=== PATIENT | female | born 1995 | race American Indian/Alaskan Native ===

== ENCOUNTER 2017-05-11 19:53 | Emergency (ER) | payer OTHER | END 2017-05-11 21:45 | disposition left against medical advice (07) | LOC: ED 19:53 | DX: M54.9 Dorsalgia, unspecified (principal); Z53.21 Procedure and treatment not carried out due to patient leaving prior to being seen by health care provider ==

== ENCOUNTER 2018-03-13 04:16 | Emergency (ER) | payer OTHER ==
[2018-03-13] MEDS ORDERED: MOTRIN PO ONE (04:44)
[2018-03-13] MEDS ORDERED: CATAPRES ONE (04:57)
[2018-03-13] MEDS ORDERED: CATAPRES PO ONE (04:58)
[2018-03-13 05:36] LABS: Basophils # (Auto) 0.1 K/mm3 (0.0-0.1); Basophils % (Auto) 1.2 % (0.0-1.8); Eosinophils # (Auto) 0.1 K/mm3 (0.0-0.4); Hematocrit 39.5 % (30.3-42.9); Lymphocytes % (Auto) 27.9 % (13.4-35.0); Mean Corpuscular HGB Conc 33 % (30-34); Mean Corpuscular Hemoglobin 29 pg (28-32); Mean Corpuscular Volume 88 fl (79-97); Monocytes # (Auto) 0.6 K/mm3 (0.0-0.8); Monocytes % (Auto) 8.1 % (0.0-7.3); Platelet Count 382 K/mm3 (140-440); Red Blood Count 4.51 M/mm3 (3.65-5.03); Red Cell Distribution Width 14.2 % (13.2-15.2)
[2018-03-13 06:16] VITALS: BP 151/98
[2018-03-13 06:34] LABS: Alanine Aminotransferase 7 units/L (7-56); BUN/Creatinine Ratio 9; Blood Urea Nitrogen 6 mg/dL (7-17); Calcium 9.2 mg/dL (8.4-10.2); Hemolysis Index 12
[2018-03-13] MEDS ORDERED: CLEOCIN PO ONE (08:11)
[2018-03-13] MEDS ORDERED: TYLENOL PO ONE (08:11)
--- NOTE | 2018-03-13 08:12 | Emergency Department Report ---
ED General Adult HPI - General Chief complaint: Wound/Laceration Stated complaint: FEET PAIN Time Seen by Provider: 03/13/18 08:02 Source: patient, family, RN notes reviewed Mode of arrival: Ambulatory Limitations: No Limitations - History of Present Illness Initial comments: This is a 23-year-old, not known to this provider previously. 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 Presents to the ER with complaint of right medial superior foot blister, and some discharge, reports that she popped it with a needle prior to arrival. Reports that she is up-to-date with tetanus vaccination. Denies fevers, chills, nausea, vomiting, lethargy, irritability, projectile vomiting, redness, or streaking. She does admit to a resolved headache, which is not sudden or thunderclap in nature, not maximal in intensity and onset, not the worst headache of her life, which has since resolved. She currently has no complaints or symptoms with the exception of the right medial foot lesion. -: Gradual, days(s) Location: head, right, lower extremity Radiation: non-radiation Severity scale (0 -10): 0 Quality: aching Consistency: other Improves with: other Worsens with: other Associated Symptoms: denies other symptoms, headaches, rash. denies: confusion , chest pain - Related Data Previous Rx's Medication Instructions Recorded Last Taken Type ALBUTEROL NEB's [Proventil 0.083% 2.5 mg IH 4XD #75 nebu 04/17/16 Unknown Rx NEBS] Azithromycin [Zithromax Z-GEO] 250 mg PO DAILY #6 tablet 04/17/16 Unknown Rx Ondansetron [Zofran TAB] 4 mg PO Q8HR PRN #10 tablet 04/17/16 Unknown Rx predniSONE [Deltasone] 20 mg PO QDAY #10 tablet 04/17/16 Unknown Rx Acetaminophen [Tylenol Arthritis] 650 mg PO Q6HR PRN #30 tablet.er 03/13/18 Unknown Rx Clindamycin [Clindamycin CAP] 300 mg PO Q8H #15 cap 03/13/18 Unknown Rx Ibuprofen [Motrin] 600 mg PO Q8H PRN #30 tablet 03/13/18 Unknown Rx Allergies Allergy/AdvReac Type Severity Reaction Status Date / Time No Known Allergies Allergy Verified 04/17/16 06:43 ED Review of Systems ROS: Stated complaint: FEET PAIN Other details as noted in HPI Comment: All other systems reviewed and negative Constitutional: denies: fever Skin: rash, lesions Neurological: headache. denies: weakness, numbness, paresthesias, confusion, abnormal gait, vertigo ED Past Medical Hx - Past Medical History Previous Medical History?: Yes Hx Asthma: Yes - Surgical History Past Surgical History?: No - Social History Smoking Status: Current Every Day Smoker Substance Use Type: None - Medications Home Medications: Home Medications Medication Instructions Recorded Confirmed Last Taken Type ALBUTEROL NEB's [Proventil 0.083% 2.5 mg IH 4XD #75 nebu 04/17/16 Unknown Rx NEBS] Azithromycin [Zithromax Z-GEO] 250 mg PO DAILY #6 tablet 04/17/16 Unknown Rx Ondansetron [Zofran TAB] 4 mg PO Q8HR PRN #10 tablet 04/17/16 Unknown Rx predniSONE [Deltasone] 20 mg PO QDAY #10 tablet 04/17/16 Unknown Rx Acetaminophen [Tylenol Arthritis] 650 mg PO Q6HR PRN #30 tablet.er 03/13/18 Unknown Rx Clindamycin [Clindamycin CAP] 300 mg PO Q8H #15 cap 03/13/18 Unknown Rx Ibuprofen [Motrin] 600 mg PO Q8H PRN #30 tablet 03/13/18 Unknown Rx ED Physical Exam - General Limitations: No Limitations General appearance: alert, in no apparent distress - Head Head exam: Present: atraumatic, normocephalic - Eye Eye exam: Present: normal appearance, PERRL, EOMI, other (visual acuity intact to finger counting, color perception, reading at a close distance). Absent: nystagmus - ENT ENT exam: Present: normal exam, normal orophraynx, mucous membranes moist, normal external ear exam - Neck Neck exam: Present: normal inspection, full ROM. Absent: tenderness, meningismus - Respiratory Respiratory exam: Present: normal lung sounds bilaterally. Absent: respiratory distress - Cardiovascular Cardiovascular Exam: Present: regular rate, normal rhythm, normal heart sounds. Absent: bradycardia, tachycardia, irregular rhythm, systolic murmur, diastolic murmur, rubs, gallop - GI/Abdominal GI/Abdominal exam: Present: soft, normal bowel sounds. Absent: distended, tenderness, guarding, rebound, rigid, pulsatile mass - Extremities Exam Extremities exam: Present: full ROM, normal capillary refill, other (2+ pulses noted in the bilateral upper, lower extremities. Compartments soft. No long bony tenderness. The pelvis is stable.). Absent: normal inspection (on the right medial foot, there is a circular area of hypopigmentation, that is minimally tender, with no redness, pus or streaking.Appears to be a blister with fenestration noted.), pedal edema, joint swelling, calf tenderness - Back Exam Back exam: Present: normal inspection, full ROM. Absent: tenderness, CVA tenderness (R), paraspinal tenderness, vertebral tenderness - Neurological Exam Neurological exam: Present: alert, oriented X3, CN II-XII intact, normal gait, other (Extraocular movements intact. Tongue midline. No facial droop. Facial sensation intact to light touch in the V1, V2, V3 distribution bilaterally. 5 and 5 strength in 4 extremities.. Sensation is intact to light touch in 4 extremities.). Absent: motor sensory deficit - Psychiatric Psychiatric exam: Present: normal affect, normal mood - Skin Skin exam: Present: warm. Absent: erythema, abrasion, ecchymosis ED Course Vital Signs 03/13/18 03/13/18 04:39 06:15 Temperature 98.6 F Pulse Rate 79 72 Respiratory 18 18 Rate Blood Pressure 191/119 Blood Pressure 151/98 [Right] O2 Sat by Pulse 100 100 Oximetry ED Medical Decision Making - Lab Data Result diagrams: 03/13/18 05:00 03/13/18 05:00 Vital Signs 03/13/18 03/13/18 04:39 06:15 Temperature 98.6 F Pulse Rate 79 72 Respiratory 18 18 Rate Blood Pressure 191/119 Blood Pressure 151/98 [Right] O2 Sat by Pulse 100 100 Oximetry Lab Results 03/13/18 03/13/18 03/13/18 Range/Units 05:00 05:00 05:00 WBC 7.1 (4.5-11.0) K/mm3 RBC 4.51 (3.65-5.03) M/mm3 Hgb 13.0 (10.1-14.3) gm/dl Hct 39.5 (30.3-42.9) % MCV 88 (79-97) fl MCH 29 (28-32) pg MCHC 33 (30-34) % RDW 14.2 (13.2-15.2) % Plt Count 382 (140-440) K/mm3 Lymph % (Auto) 27.9 (13.4-35.0) % [place] % (Auto) 8.1 H (0.0-7.3) % Eos % (Auto) 2.0 (0.0-4.3) % Baso % (Auto) 1.2 (0.0-1.8) % Lymph # 2.0 (1.2-5.4) K/mm3 [place] # 0.6 (0.0-0.8) K/mm3 Eos # 0.1 (0.0-0.4) K/mm3 Baso # 0.1 (0.0-0.1) K/mm3 Seg Neutrophils % 60.8 (40.0-70.0) % Seg Neutrophils # 4.3 (1.8-7.7) K/mm3 Sodium 140 (137-145) mmol/L Potassium 3.8 (3.6-5.0) mmol/L Chloride 103.3 (98-107) mmol/L Carbon Dioxide 23 (22-30) mmol/L Anion Gap 18 mmol/L BUN 6 L (7-17) mg/dL Creatinine 0.7 (0.7-1.2) mg/dL Estimated GFR > 60 ml/min BUN/Creatinine Ratio 9 % Glucose 84 (65-100) mg/dL Calcium 9.2 (8.4-10.2) mg/dL Total Bilirubin 0.20 (0.1-1.2) mg/dL AST 12 (5-40) units/L ALT 7 (7-56) units/L Alkaline Phosphatase 76 (35-129) units/L Total Protein 7.7 (6.3-8.2) g/dL Albumin 4.0 (3.9-5) g/dL Albumin/Globulin Ratio 1.1 % HCG, Qual Negative (Negative) Urine Color (Yellow) Urine Turbidity (Clear) Urine pH (5.0-7.0) Ur Specific [place] (1.003-1.030) Urine Protein (Negative) mg/dL Urine Glucose (UA) (Negative) mg/dL Urine Ketones (Negative) mg/dL Urine Blood (Negative) Urine Nitrite (Negative) Urine Bilirubin (Negative) Urine Urobilinogen (<2.0) mg/dL Ur Leukocyte Esterase (Negative) Urine WBC (Auto) (0.0-6.0) /HPF Urine RBC (Auto) (0.0-6.0) /HPF U Epithel Cells (Auto) (0-13.0) /HPF Urine Bacteria (Auto) (Negative) /HPF Amorphous Crystals Urine Mucus /HPF 03/13/18 Range/Units 08:03 WBC (4.5-11.0) K/mm3 RBC (3.65-5.03) M/mm3 Hgb (10.1-14.3) gm/dl Hct (30.3-42.9) % MCV (79-97) fl MCH (28-32) pg MCHC (30-34) % RDW (13.2-15.2) % Plt Count (140-440) K/mm3 Lymph % (Auto) (13.4-35.0) % [place] % (Auto) (0.0-7.3) % Eos % (Auto) (0.0-4.3) % Baso % (Auto) (0.0-1.8) % Lymph # (1.2-5.4) K/mm3 [place] # (0.0-0.8) K/mm3 Eos # (0.0-0.4) K/mm3 Baso # (0.0-0.1) K/mm3 Seg Neutrophils % (40.0-70.0) % Seg Neutrophils # (1.8-7.7) K/mm3 Sodium (137-145) mmol/L Potassium (3.6-5.0) mmol/L Chloride (98-107) mmol/L Carbon Dioxide (22-30) mmol/L Anion Gap mmol/L BUN (7-17) mg/dL Creatinine (0.7-1.2) mg/dL Estimated GFR ml/min BUN/Creatinine Ratio % Glucose (65-100) mg/dL Calcium (8.4-10.2) mg/dL Total Bilirubin (0.1-1.2) mg/dL AST (5-40) units/L ALT (7-56) units/L Alkaline Phosphatase (35-129) units/L Total Protein (6.3-8.2) g/dL Albumin (3.9-5) g/dL Albumin/Globulin Ratio % HCG, Qual (Negative) Urine Color Yellow (Yellow) Urine Turbidity Cloudy (Clear) Urine pH 6.0 (5.0-7.0) Ur Specific [place] 1.021 (1.003-1.030) Urine Protein 30 mg/dl (Negative) mg/dL Urine Glucose (UA) Neg (Negative) mg/dL Urine Ketones Neg (Negative) mg/dL Urine Blood Neg (Negative) Urine Nitrite Neg (Negative) Urine Bilirubin Neg (Negative) Urine Urobilinogen 4.0 (<2.0) mg/dL Ur Leukocyte Esterase Sm (Negative) Urine WBC (Auto) 25.0 H (0.0-6.0) /HPF Urine RBC (Auto) 7.0 (0.0-6.0) /HPF U Epithel Cells (Auto) 19.0 H (0-13.0) /HPF Urine Bacteria (Auto) 1+ (Negative) /HPF Amorphous Crystals Few Urine Mucus 3+ /HPF - Radiology Data Radiology results: report reviewed, image reviewed Noncontrast CT scan of the brain is negative for acute disease - Medical Decision Making Differential diagnosis, including but not limited to: Intracranial hemorrhage, migraine headache, tension headache, cluster headache, right foot blister, right foot cellulitis, incidental elevated blood pressure Assessment and plan: 23-year-old female with a primary complaint of nontraumatic right foot blister with some puslike discharge, now resolving. Patient will be started on warm compresses, she is up-to-date with tetanus vaccination and she will be started on appropriate oral antibiotic therapy. She has a GCS of 15, with an NIH score of 0. Not currently having headache at this time, noncontrast CT scan of the brain is negative, and does not have historical features to suggest ischemic, hemorrhagic stroke or meningitis. Elevated blood pressure is appreciated, and patient was medicated prior to my arrival with clonidine. Still having elevated blood pressure which is not acutely symptomatic; please reference the [employer] clinical policy hypertension that is not acutely symptomatic Patient may be discharged at this time with instructions to follow up as an outpatient. Critical care attestation.: If time is entered above; I have spent that time in minutes in the direct care of this critically ill patient, excluding procedure time. ED Disposition Clinical Impression: Elevated blood pressure reading Blister of foot Qualifiers: Encounter type: initial encounter Laterality: right Qualified Code(s): S90.821A - Blister (nonthermal), right foot, initial encounter Disposition: DC-01 TO HOME OR SELFCARE Is pt being admited?: No Does the pt Need Aspirin: No Condition: Stable Additional Instructions: Apply warm compresses to the affected area. Rest, and avoid heavy lifting and participate in physical activities as tolerated. Take the pain medication as needed, take antibiotics as directed. Have the wound inspected by her primary care doctor or leather currier in 7 days. Please note that blood pressure was elevated. This should be followed up by primary care doctor within 3-4 weeks. Long-term complications of hypertension and elevated blood pressure include stroke, heart attack, disability, paralysis , loss of quality of life. Make certain to get 6-8 hours of good quality uninterrupted sleep on a daily basis, avoid consumption of stimulants and caffeinated substances, and make certain to eat a healthy balanced diet, with plenty of fruits, fibers, vegetables. Make certain to participate in physical activity, exercise as tolerated, as these interventions are most likely to improve blood pressure and overall quality of life and cardiovascular health. Please return to the ER right away with new pain, worsened pain, migration of pain, projectile vomiting, change in mental status, confusion, redness, pus, streaking, discharge. Referrals: [facility] [Provider Group] - 3-5 Days DEE MCCLELLAND DPM [Staff Physician] - 3-5 Days
[2018-03-13 08:23] LABS: Amorphous Crystals,Urine Few; Bacteria,Urine 1+ /HPF (Negative); Bilirubin,Urine NEG (Negative); Blood,Urine NEG (Negative); Color,Urine Yellow (Yellow); Mucus,Urine 3+ /HPF
--- NOTE | 2018-03-13 09:45 | Cat Scan Report ---
FINAL REPORT EXAM: CT HEAD/BRAIN WO CON HISTORY: headache htn TECHNIQUE: CT of the Head without IV contrast. PRIORS: None currently available. FINDINGS: There is no evidence for acute ischemia. There is no hemorrhage. There is no midline shift. There is no hydrocephalus. There is no mass. Age appropriate vargas-white matter attenuation is noted. There is no calvarial fracture. The temporal bones demonstrate aerated mastoid air cells. The middle ears appear unremarkable. Paranasal sinuses are unremarkable. Globes are intact. IMPRESSION: No acute intracranial findings.
== END 2018-03-13 10:52 | disposition home or self-care (01) ==
LOC: ED 04:16
DX: S90.821A Blister (nonthermal), right foot, initial encounter (principal); J45.909 Unspecified asthma, uncomplicated; F17.200 Nicotine dependence, unspecified, uncomplicated; Z79.899 Other long term (current) drug therapy; X58.XXXA Exposure to other specified factors, initial encounter; Y93.89 Activity, other specified; Y92.89 Other specified places as the place of occurrence of the external cause; Y99.8 Other external cause status
CPT/HCPCS: 36415; 70450; 80053; 81001; 84703; 85025; 99284